=== PATIENT | female | born 1985 | race African-American/Black ===

== ENCOUNTER 2018-11-03 19:44 | Emergency (ER) | payer SELFPAY ==
[~2018-11-03] VITALS: Ht 175.3 cm; Wt 59.0 kg
[2018-11-03 20:04] VITALS: BP 120/74
== END 2018-11-03 20:48 | disposition home or self-care (01) ==
LOC: ER 19:50
DX: J03.90 Acute tonsillitis, unspecified (principal); F17.200 Nicotine dependence, unspecified, uncomplicated
CPT/HCPCS: A4606; Z7502

== ENCOUNTER 2019-01-04 10:57 | Emergency (ER) | payer MEDICAID ==
[~2019-01-04] VITALS: Ht 175.3 cm; Wt 64.0 kg
[2019-01-04 10:57] VITALS: BP 108/70
--- NOTE | 2019-01-04 11:26 | NUR ---
STREP AND FLU SWAB COLLECTED
== END 2019-01-04 12:54 | disposition home or self-care (01) ==
LOC: ER 10:59
DX: J06.9 Acute upper respiratory infection, unspecified (principal); F17.200 Nicotine dependence, unspecified, uncomplicated
CPT/HCPCS: 71045-TC; 86403-TC; 87070-TC; 87400

== ENCOUNTER 2019-10-08 16:27 | Emergency (ER) | payer MEDICAID ==
[~2019-10-08] VITALS: Ht 175.3 cm; Wt 63.0 kg
[2019-10-08 16:37] VITALS: BP 136/89
--- NOTE | 2019-10-08 16:43 | NUR ---
PT CAME INTO THE ED C/O FACIAL GRADY AND TINGLING X 3 DAYS. PT AAOX4, VSS, BREATHING EVEN AND UNLABORED ON ROOM AIR W/ NAD NOTED. PT CONNECTED TO THE MONITOR AND POX.
--- NOTE | 2019-10-08 17:21 | NUR ---
Patient discharged to home in stable condition. Written and verbal after care instructions given. Patient verbalizes understanding of instruction.
== END 2019-10-08 17:23 | disposition home or self-care (01) ==
LOC: ER 16:38
DX: L25.9 Unspecified contact dermatitis, unspecified cause (principal); R01.1 Cardiac murmur, unspecified; F17.200 Nicotine dependence, unspecified, uncomplicated